=== PATIENT | male | born 1970 | race Caucasian/White ===

== ENCOUNTER → 2020-09-10 | Outpatient (CLI) | payer BC, OTHER | LOC: KOH-I 16:50 | DX: J18.9 Pneumonia, unspecified organism (principal) | CPT/HCPCS: 71046 ==

== ENCOUNTER → 2021-04-08 | Outpatient (CLI) | payer BC, OTHER | LOC: US 10:15 | DX: I70.0 Atherosclerosis of aorta (principal) | CPT/HCPCS: 93979 ==

== ENCOUNTER → 2021-11-24 | Outpatient (CLI) | payer BC, OTHER | LOC: KOH-I 15:59 | DX: R10.9 Unspecified abdominal pain (principal); R93.5 Abnormal findings on diagnostic imaging of other abdominal regions, including retroperitoneum | CPT/HCPCS: 74018 ==

== ENCOUNTER → 2021-12-10 | Outpatient (CLI) | payer BC, OTHER | LOC: KOH-I 10:15 | DX: R10.11 Right upper quadrant pain (principal); K76.0 Fatty (change of) liver, not elsewhere classified; N28.1 Cyst of kidney, acquired | CPT/HCPCS: 76705 ==